=== PATIENT | female | born 1975 | race Hispanic/Latino ===

== ENCOUNTER 2016-07-17 00:41 | Emergency (ER) | payer OTHER ==
[~2016-07-17] VITALS: Ht 177.8 cm; Wt 134.3 kg
[~2016-07-17 00:41] MED LIST: IBUPROFEN800 MG PO; ONDANSETRON HYDR4 MG; PERCOCET 325 MG1 TA2 PO; VITAFOL-ONE1 SGL PO
[2016-07-17 00:48] VITALS: BP 135/84
--- NOTE | 2016-07-17 01:55 | ED SKIN/ALLERGY COMPLAINT ---
History of Present Illness General Chief Complaint: Allergy Symptoms Stated Complaint: HIVES ALL OVER, SKIN RASH Source: patient, old records Exam Limitations: no limitations Vital Signs & Intake/Output Vital Signs & Intake/Output Vital Signs Date Time Temp Pulse Resp B/P Pulse O2 O2 Flow FiO2 Ox Delivery Rate 07/17 0101 97 Room Air Room Air 07/17 0048 99.9 97 18 135/84 98 Allergies Coded Allergies: Penicillins (Severe, HIVES 07/17/16) Uncoded Allergies: MUSHROOMS (ITCHY 04/16/14) Reconcile Medications Diphenhydramine HCl (Benadryl Allergy) 25 MG TABLET 1-2 TAB PO Q6P PRN urticaria Famotidine (Pepcid) 20 MG TABLET 1 TAB PO BID PRN urticaria Ibuprofen 800 MG TABLET 800 MG PO Q6P PRN PAIN SCALE 4-6 OXYCODONE HCL/ACETAMINOPHEN (Percocet 5-325 MG Tablet) 325 MG/5 MG TAB 1 TAB PO Q4-6 PRN PRN PAIN PNV#26/IRON POLY/FA/DHA (Vitafol-One Capsule) 29 MG IRON-1 MG-200 MG CAPSULE 1 CAP PO DAILY (Reported) Prednisone 20 MG TABLET 1 TAB PO BID allergic rx Triage Note: 41YO FEMALE TO [facility] W/CO HIVES PRESENT OVER ENTIRE BODY TONITE. 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 yes Onset: 2 days Duration: day(s):, constant, continues in ED, getting worse Timing: recent history Severity: severe Location: generalized Possible Factors: exposure to allergen, foods, medications Modifying Factors: Improves With: antihistamine, scratching. Associated Symptoms: change in skin texture, hives, rash LMP (ages 10-50): unknown : No Patient currently breastfeeds: No HPI: 2 weeks prior to admission patient started episode of headache for weight loss. 5 days prior to admission patient had bilateral knee injections in his been taking meloxicam for pain. 2 days prior to admission she developed generalized rash waxing and waning improvement with Benadryl worsening several hours prior to admission. She denies fever chills nausea vomiting diarrhea abdominal pain chest pain shortness breath headache dysuria bleeding new soap shampoo detergent over-the- counter medications. Past History Travel History Traveled to [place] past 21 day No Medical History Any Pertinent Medical History? 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 No Review of Systems Review of Systems Constitutional: Reports: no symptoms. EENTM: Reports: no symptoms. Respiratory: Reports: no symptoms. Cardiovascular: Reports: no symptoms. GI: Reports: no symptoms. Genitourinary: Reports: no symptoms. Musculoskeletal: Reports: no symptoms. Skin: Reports: see HPI, rash. Neurological/Psychological: Reports: no symptoms. Hematologic/Endocrine: Reports: no symptoms. Immunologic/Allergic: Reports: no symptoms. All Other Systems: Reviewed and Negative Physical Exam Physical Exam General Appearance: well developed/nourished, alert, awake, anxious, moderate distress, obese Head: atraumatic, normal appearance Eyes: Bilateral: PERRL, EOMI. Ears, Nose, Throat: normal pharynx, normal ENT inspection, hearing grossly normal Neck: normal inspection, supple Respiratory: normal breath sounds, chest non-tender, no respiratory distress, quiet respiration, lungs clear Cardiovascular: regular rate/rhythm Peripheral Pulses: 4+ carotid (R), 4+ carotid (L) Gastrointestinal: normal bowel sounds, soft, non-tender, no organomegaly Back: normal range of motion, no vertebral tenderness Extremities: normal inspection, normal range of motion, no edema Neurologic/Psych: awake, alert, oriented x 3, normal mood/affect Reflexes: 2+: bicep (R), bicep (L). Skin: intact, rash Skin Problem Location: generalized Skin Problem Character: patchy, rash, urticarial Lymphatic: no anterior cervical carmina Progress Differential Diagnosis: abscess/cellulitis, allergic reaction, urticaria Plan of Care: Prednisone Benadryl and Pepcid Departure Departure Time of Disposition: 152 Disposition: HOME OR SELF CARE Condition: Stable Clinical Impression Primary Impression: Urticaria medicamentosa Referrals: NAVYA ACEVES MD (PCP/Family) Additional Instructions: Stop Meloxicam and apple cider vinegar Departure Forms: Customer Survey General Discharge Information RELEASE- WORK Prescriptions: Current Visit Scripts Prednisone 1 TAB PO BID #10 TAB Diphenhydramine HCl (Benadryl Allergy) 1-2 TAB PO Q6P PRN urticaria #50 TAB Ref 1 Famotidine (Pepcid) 1 TAB PO BID PRN urticaria #10 TAB
[2016-07-17] MEDS ORDERED: BENADRYL ALLERG25 M2 PO (01:56)
[2016-07-17] MEDS ORDERED: PREDNISONE20 M1 PO (01:56)
[2016-07-17] MEDS ORDERED: PEPCID20 M1 PO (01:56)
== END 2016-07-17 02:08 ==
LOC: ERH 00:41
DX: L50.0 Allergic urticaria (principal)

== ENCOUNTER → 2016-08-27 | Day surgery (SDC) | payer OTHER ==
[~2016-08-27] VITALS: Ht 177.8 cm; Wt 136.1 kg
[~2016-08-27] MED LIST changes: +BENADRYL ALLERG25 M2 PO; +PEPCID20 M1 PO; +PREDNISONE20 M1 PO
--- NOTE | 2016-09-01 13:54 | Operative Report ---
Operative/Inv Procedure Report Surgery Date: 08/27/16 Name of Procedure: Laparoscopic tubal sterilization bilateral lysis of adhesionsOPEN LAPAROSCOPY Pre-Operative Diagnosis: Multi parity Post-Operative Diagnosis: Same and obesity Estimated Blood Loss: less than 50ml Surgeon/Hotel Dining Room Cashier: NATHALIE CLEMENTS,JUDI Kennedy Anesthesia: general endotracheal tube Operative/Procedure Note Note: Procedure note patient was taken the operating room placed on position after adequate induction general anesthesia via endotracheal tube patient placed in dorsolithotomy position the vagina from dorsal fashion bladder was catheterized abdomen was prepped and draped so fashion by examination anesthesia performed a majano speculum placed vagina CO2 tenaculum placed on the Intralipid cervix gentle downward traction cervix was dilated to allow for the insertion Clark cannula surgeon regowned at the level he umbilicus stab incision was made to allow for the entry of Veress needle however the patient was morbidly obese and the Veress needle was not long enough there is needle was removed at this point incision was extended to allow for S [place] retractors with copious and snaps the fascia was identified cut opened on sutured and at this point I a blunt port was placed into the abdomen the abdomen was insufflated possibly fully Z CO2 to liver edge dullness which point under direct visualization a 5 mm trocar was placed 2 finger breadths above and 1 fingerbreadth to right of the midline to avoid adhesions and the globular uterus at this point I a 5 mm port was placed through that incision the port remained in place I the arm Anewsinger was used to leaf size picker the tube and ablative height 7 cm that tube patient tolerated that well both right the left tube was picked up via a port was placed 2 fingerbreadths above symphysis pubis and 1 cm to the left in the midline to accommodate to hemostasis was apparent maximum CO2 was removed all trochars removed from the abdomen the incision at the umbilicus was oversewn using the fascia 304 skin incisions Marcaine was injected underneath both skin incisions the skin was reapproximated using 3L at the end the case Clark cannula was moved the Garcia was removed on since removed from vagina patient was returned to supine position. On the incision at the umbilicus skin had been reapproximated using 30 the fascia being reapproximated using 0 at the umbilicus Marcaine was injected underneath the skin for block sterile point bandages were applied at patient was awakened from anesthesia and transferred recovery room awake alert counts correct Findings: Enlarged uterus consistent with 12 week fibroid uterus normal ovaries bilaterally adhesions from the uterus to the anterior abdominal wall consistent with previous section otherwise normal anatomy
== END ==
LOC: STS 03:12
DX: Z30.2 Encounter for sterilization (principal); E66.01 Morbid (severe) obesity due to excess calories; Z68.41 Body mass index [BMI] 40.0-44.9, adult; N73.6 Female pelvic peritoneal adhesions (postinfective)
CPT/HCPCS: 81025; J0131; J1100; J1580; J2250; J2405

== ENCOUNTER 2017-09-30 06:39 | Emergency (ER) | payer OTHER ==
[~2017-09-30] VITALS: Ht 177.8 cm; Wt 131.5 kg
[~2017-09-30 06:39] MED LIST changes: +CYCLOBENZAPRINE10 M1 PO
[2017-09-30] MEDS ORDERED: LINZESS145 MC1 PO (06:59)
--- NOTE | 2017-09-30 07:08 | ED GENERAL ADULT ---
History of Present Illness General Chief Complaint: Lower Extremity Problems Stated Complaint: RIGHT KNEE PAIN, NO KNOWN INJURY PER PT Source: patient Exam Limitations: no limitations Vital Signs & Intake/Output Vital Signs & Intake/Output Vital Signs Date Time Temp Pulse Resp B/P B/P Pulse O2 O2 Flow FiO2 Mean Ox Delivery Rate 09/30 0852 98.1 88 20 120/80 98 Room Air 09/30 0652 98.8 109 18 127/71 98 Room Air Allergies Coded Allergies: Penicillins (Severe, HIVES 07/17/16) Uncoded Allergies: APPLE CIDER VINEGAR (Severe, HIVES 08/25/16) MUSHROOMS (ITCHY 04/16/14) Reconcile Medications Cyclobenzaprine HCl 10 MG TABLET 1 TAB PO QPM PRN PAIN Diphenhydramine HCl (Benadryl Allergy) 25 MG TABLET 1-2 TAB PO Q6P PRN urticaria Famotidine (Pepcid) 20 MG TABLET 1 TAB PO BID PRN urticaria Ibuprofen 800 MG TABLET 800 MG PO Q6P PRN PAIN SCALE 4-6 Linaclotide (Linzess) 145 MCG CAPSULE 1 CAP PO DAILY CONSTIPATION (Reported) Meloxicam (Mobic) 15 MG TABLET 1 TAB PO DAILY PRN PAIN OXYCODONE HCL/ACETAMINOPHEN (Percocet 5-325 MG Tablet) 325 MG/5 MG TAB 1 TAB PO Q4-6 PRN PRN PAIN PNV#26/IRON POLY/FA/DHA (Vitafol-One Capsule) 29 MG IRON-1 MG-200 MG CAPSULE 1 CAP PO DAILY (Reported) Prednisone 20 MG TABLET 1 TAB PO DAILY ARTHRITIS Prednisone 20 MG TABLET 1 TAB PO DAILY ARTHRITIS Prednisone 20 MG TABLET 1 TAB PO BID allergic rx Triage Note: PT COMING IN FROM HOME C/O RIGHT KNEE PAIN THAT STARTED YESTERDAY. PT STATES THE PAIN WAS MILD TODAY BUT IT GOT PROGRESSIVELY WORSE. PAIN 8/10 AT THIS TIME. PT STATES "I THINK FLUID IS BUILDING UP IN MY KNEE." PT DENIES ANY INJURY TO KNEE. PT STATES THAT SHE HAS PREVIOUSLY RECIEVED STEROID INJECTIONS IN HER KNEE FOR ARTHRITIS BUT THERE HAS NEVER BEEN SWELLING TO THE KNEE. +SWELLING TO RIGHT KNEE. NO OTHER DEFORMITIES OR SIGNS OF TRAUMA TO KNEE. Triage Nurses Notes Reviewed? yes Onset: Abrupt Duration: day(s): Timing: recent history : No Patient currently breastfeeds: No HPI: 09/30/17 42-year-old female presents to the emergency department complaining of right knee pain. She says that she's had a history of arthritis in her knees. She has seen Javier Osorio MD. She is had prior steroid injections. She denies any fever, recent trauma. Rash or tick bite. Past History Travel History Traveled to [place] past 21 day No Medical History Any Pertinent Medical History? 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 No Review of Systems Review of Systems Constitutional: Denies: fever. EENTM: Reports: no symptoms. Respiratory: Reports: no symptoms. Cardiovascular: Reports: no symptoms. GI: Reports: no symptoms. Genitourinary: Reports: no symptoms. Musculoskeletal: Reports: see HPI. Skin: Denies: rash. Neurological/Psychological: Reports: no symptoms. Hematologic/Endocrine: Reports: no symptoms. Physical Exam Physical Exam General Appearance: well developed/nourished, alert, awake, anxious, mild distress Head: atraumatic, normal appearance Eyes: Bilateral: normal appearance, PERRL, EOMI. Ears, Nose, Throat: normal pharynx, normal ENT inspection Neck: normal inspection, supple, full range of motion Respiratory: normal breath sounds, chest non-tender, no respiratory distress Cardiovascular: regular rate/rhythm Peripheral Pulses: 4+ tibialis posterior (R) Back: normal range of motion Extremities: tenderness Neurologic/Psych: no motor/sensory deficits, awake, alert, oriented x 3 Skin: intact, normal color, warm/dry Core Measures ACS in differential dx? No CVA/TIA Diagnosis: No Sepsis Present: No Sepsis Focused Exam Completed? No Progress Differential Diagnoses I considered the following diagnoses in my evaluation of the patient: [Arthritis , gout, fracture, septic arthritis, meniscus injury, ligamentous injury, DVT] Plan of Care: Orders Procedure Date/time Status Durable Medical Equipment 09/30 2326 Active Initial ED EKG: none Departure Departure Disposition: HOME OR SELF CARE Condition: Stable Clinical Impression Primary Impression: Arthritis Secondary Impressions: Bursitis, Knee pain Referrals: Unknown (PCP/Family) Departure Forms: Customer Survey General Discharge Information Prescriptions: Current Visit Scripts Meloxicam (Mobic) 1 TAB PO DAILY PRN PAIN #20 TAB Prednisone 1 TAB PO DAILY #6 TAB Prednisone 1 TAB PO DAILY #6 TAB Comments X-ray of the right knee showing below PATIENT: NELA COLINDRES PRESENT AGE: 42 PATIENT ACCOUNT NO: [id number] : 76 LOCATION: [facility] ORDERING PHYSICIAN: Vitor Burt MD SERVICE DATE: 09/30/17 EXAM TYPE: RAD - XRY-KNEE COMPLETE RIGHT EXAMINATION: XR KNEE, RIGHT CLINICAL INFORMATION: Atraumatic right knee pain. COMPARISON: None TECHNIQUE: Four views of the right knee. FINDINGS: No acute fracture or subluxation. There is mild joint space narrowing of the patellofemoral compartment. There are prominent tricompartmental marginal osteophytes. Enthesophyte formation at the superior pole of the patella. There is likely a small joint effusion. The soft tissues are unremarkable. IMPRESSION: Tricompartmental degenerative changes of the knee with marginal osteophyte formation. Mild patellofemoral joint space narrowing. Likely small joint effusion. DICTATED BY: Dylan Martinez MD DATE/TIME DICTATED:09/30/17804 ASTROBIOLOGIST:JAI DATE/TIME TRANSCRIBED:09/30/17804 CONFIDENTIAL, DO NOT COPY WITHOUT APPROPRIATE AUTHORIZATION. <Electronically signed in Other Vendor System> SIGNED BY: Juan CLEMENTS,Dylan 09/30 0811 The patient had full range of motion but with pain to the right knee. There was no increased warmth. There was no erythema. No clinical evidence to suggest septic arthritis. She was told to return to the emergency department if worse. Mobic as needed for pain. Follow-up with Javier Osorio MD this week. Weightbearing as tolerated. Critical Care Note Critical Care Note Critical Care Time: non-applicable
--- NOTE | 2017-09-30 08:11 | RADIOLOGY REPORT ---
EXAMINATION: XR KNEE, RIGHT CLINICAL INFORMATION: Atraumatic right knee pain. COMPARISON: None TECHNIQUE: Four views of the right knee. FINDINGS: No acute fracture or subluxation. There is mild joint space narrowing of the patellofemoral compartment. There are prominent tricompartmental marginal osteophytes. Enthesophyte formation at the superior pole of the patella. There is likely a small joint effusion. The soft tissues are unremarkable. IMPRESSION: Tricompartmental degenerative changes of the knee with marginal osteophyte formation. Mild patellofemoral joint space narrowing. Likely small joint effusion.
[2017-09-30] MEDS ORDERED: PREDNISONE20 M1 PO ×2 (08:43→08:56)
[2017-09-30] MEDS ORDERED: MOBIC15 M1 PO ×2 (08:43→08:54)
[2017-09-30 08:52] VITALS: BP 120/80
== END 2017-09-30 08:54 ==
LOC: ERH 06:39
DX: M70.51 Other bursitis of knee, right knee (principal); M17.11 Unilateral primary osteoarthritis, right knee
CPT/HCPCS: 73562-RT; 96372; J1885